=== PATIENT | female | born 1940 | race Caucasian/White ===

== ENCOUNTER → 2016-09-20 | Outpatient (CLI) | payer MEDICARE ==
[2016-09-20 09:00] LABS: Non-African American GFR(MDRD) >60 (>60 ml/min/1.73 sqM)
--- NOTE | 2016-09-20 15:02 | MR ---
Brain MRI with and without contrast HISTORY: Meningioma Multiplanar multisequence and postcontrast images following 18 cc MultiHance IV correlated to previou s brain MRI dated March There is no restricted diffusion. No hemorrhage or hydrocephalus. Corpus callosum, pituitary, cervica l medullary junction, cerebellopontine angles are within normal limits. The area of abnormal enhancem ent at the prepontine level shows mass effect on the kita as on prior exam, the appearance is stable. There are normal vascular flow voids. Normal vascular enhancement. The orbits show symmetric appeara nce. Scattered hyperintensities are present within the deep, subcortical, periventricular white matte r on inversion recovery and T2-weighted sequences. Inflammatory changes are present within the left m astoid air cells similar to prior exam. IMPRESSION: Stable exam. No significant interval change.
== END | disposition home or self-care (01) ==
LOC: RADMRIMAIN 08:35
PROVIDERS: ATTEND Neurological Surgery
DX: Z01.818 Encounter for other preprocedural examination (principal)
CPT/HCPCS: 82565; 70553; A9577

== ENCOUNTER → 2017-06-15 | Outpatient (CLI) | payer MEDICARE ==
--- NOTE | 2017-06-16 11:38 | MM ---
Reason for exam: screening (asymptomatic). Last mammogram was performed 1 year ago. History: Patient is postmenopausal and is nulliparous. Excisional biopsy of the left breast. Took estrogen for 15 years beginning at age 47. Took progesterone for 15 years beginning at age 47. Physical Findings: A clinical breast exam by your physician is recommended on an annual basis and results should be correlated with mammographic findings. MG 3D Screening Mammo W/Cad Bilateral CC and MLO view(s) were taken. Prior study comparison: June 11, 2016, bilateral MG 3d screening mammo w/cad. December 13, 2014, bilateral MG screening mammo w CAD. There are scattered fibroglandular densities. There is chronic nodularity bilaterally. There is no discrete abnormality. ASSESSMENT: Benign, BI-RAD 2 RECOMMENDATION: Routine screening mammogram of both breasts in 1 year.
== END | disposition home or self-care (01) ==
LOC: RADMAMWWP 11:03
PROVIDERS: ATTEND Family Medicine
DX: Z12.31 Encounter for screening mammogram for malignant neoplasm of breast (principal)
CPT/HCPCS: 77063; G0202

== ENCOUNTER → 2018-03-24 | Day surgery (SDC) | payer MEDICARE ==
[2018-03-22 13:19] VITALS: BMI 31.2
[~2018-03-24] MED LIST: LIDOCAINE 1% 20 ML VIAL (10MG/ML) FOR IV START INTRADERMA PRN; PROPOFOL 10 MG/ML 20 ML VIAL IV ONE
[2018-03-24 10:04] VITALS: RESP 18; TEMP 97.6
[2018-03-24] MEDS: LACTATED RINGERS 1,000 ML IV SCH ×2 (10:26→10:32)
--- NOTE | 2018-03-24 10:52 | P.PCN ---
Date of Procedure: 03/24/18 Procedure(s) Performed: BRIEF HISTORY: Patient is a 77-year-old pleasant female, scheduled for an elective colonoscopy as a part of evaluation of prior history of colon polyps. PROCEDURE PERFORMED: Colonoscopy. PREOPERATIVE DIAGNOSIS: History of colon polyps. IV sedation per Anesthesia. PROCEDURE: After informed consent was obtained, the patient, was brought into the endoscopy unit. IV sedation was administered by Anesthesia under continuous monitoring. Digital rectal examination was normal. Initially the Olympus CF- 160 flexible video colonoscope was then inserted in the rectum, gradually advanced into the cecum without any difficulty. Careful examination was performed as the scope was gradually being withdrawn. Ileocecal valve and the appendiceal orifice were visualized and appeared normal. Prep was excellent. Mucosa of the cecum, ascending colon, transverse colon, descending colon, sigmoid colon, and rectum appeared normal. Scattered sigmoid diverticulosis seen. Retroflexion was performed in the rectum and no lesions were seen. The patient tolerated the procedure well. IMPRESSION: Normal-appearing colon from rectum to cecum with no evidence of colorectal neoplasia. Scattered sigmoid diverticulosis. RECOMMENDATIONS: Findings of this examination were discussed with the patient as well as a family. She was advised to be a high-fiber diet..
[2018-03-24 11:18] VITALS: BP 136/82; PULSE 50
== END ==
LOC: ORWHC2ENDO 08:42
PROVIDERS: ATTEND Internal Medicine Gastroenterology
DX: Z12.11 Encounter for screening for malignant neoplasm of colon (principal); K57.30 Diverticulosis of large intestine without perforation or abscess without bleeding; Z86.010 Personal history of colon polyps; I10 Essential (primary) hypertension; Z79.899 Other long term (current) drug therapy; Z88.5 Allergy status to narcotic agent; Z88.2 Allergy status to sulfonamides; Z91.09 Other allergy status, other than to drugs and biological substances
CPT/HCPCS: J2704; G0105; 45378

== ENCOUNTER → 2018-06-11 | Outpatient (CLI) | payer MEDICARE ==
--- NOTE | 2018-06-11 07:52 | MR ---
EXAMINATION TYPE: MR brain wo/w con DATE OF EXAM: 06/11/2018 COMPARISON: Prior MRI brain May 29, 2017 HISTORY: Meningioma TECHNIQUE: Multiplanar, multisequence images of the brain and brainstem is performed without and with IV contras t, utilizing 8.5 mL intravenous Gadavist . FINDINGS: Diffusion weighted images demonstrate no evidence of a recent infarct or other diffusion ab normality. There is no worrisome extra-axial fluid collection. There is ventricular and sulcal promi nence consistent with diffuse cerebral atrophy. There are scattered foci of T2 hyperintensity seen th roughout the superficial, deep, and periventricular white matter. Approximately 30-40 scattered lesio ns are redemonstrated. No change from prior. Midline structures demonstrate normal morphology. The craniocervical junction appears within normal limits. Post contrast images demonstrate redemonstrate homogeneous enhancing extra-axial mass right of superior to mid kita measuring 1.7 cm transversely by 1.1 cm AP diameter by 2.0 cm craniocaudal di ameter axial image 11 and sagittal image 79 consistent with meningioma not significantly changed in s ize or appearance from most recent MRI. No new enhancing lesions are present. The dural venous sinuse s appear patent. The visualized sinuses remain clear and the globes are intact. Some patchy increased fluid signal left mastoid air cells remains present. IMPRESSION: Stable 2.0 cm prepontine enhancing mass or meningioma. No new enhancing lesions are prese nt. Background fairly moderate chronic small vessel ischemic change redemonstrated without significan t interval change.
== END | disposition home or self-care (01) ==
LOC: RADMRIMAIN 05:58
PROVIDERS: ATTEND Neurological Surgery
DX: D32.0 Benign neoplasm of cerebral meninges (principal); I67.82 Cerebral ischemia
CPT/HCPCS: 82565; 70553; 36415; A9585

== ENCOUNTER → 2019-07-13 | Outpatient (CLI) | payer MEDICARE ==
--- NOTE | 2019-07-13 12:31 | MR ---
EXAMINATION TYPE: MR brain wo/w con DATE OF EXAM: 07/13/2019 COMPARISON: 06/11/2018 HISTORY: Follow-up for meningioma. TECHNIQUE: Multiplanar, multisequence images of the brain and brainstem is performed without and with IV contras t, utilizing 9 mL intravenous Gadavist . FINDINGS: Diffusion weighted images demonstrate no evidence of a recent infarct or other diffusion ab normality. There is no extra-axial fluid collection. Scattered foci of T2/FLAIR hyperintensity are s een within the periventricular and subcortical white matter most commonly sequela of microangiopathy. Overall there is moderate burden. The ventricular system and cisternal spaces are symmetrically prom inent compatible with age-related volume loss. Again on postcontrast images there is an extra-axial T1 isointense and T2 isointense homogeneously en hancing mass measuring 1.7 x 1.1 x 2.0 cm, unchanged from 06/11/2018. There is mass effect on the pitu itary hypothalamus with thickening of the hypothalamus and questionable abnormal enhancement There is mass effect on the basilar artery shifting it to the left. This is at the level of the mid kita. Midline structures demonstrate normal morphology. The craniocervical junction appears within normal limits. The dural venous sinuses appear patent. The visualized sinuses are clear other than trace muc osal thickening in the ethmoid sinuses and the globes are intact. There is undulation of the optic ne rves. Prominent amount of subarachnoid fluid is seen surrounding the optic nerves. There is a scant a mount of fluid in the bilateral mastoid air cells, a chronic finding. Left frontal old well-circumscr ibed subcutaneous mass measures 1 cm and likely represents a sebaceous cyst. IMPRESSION: 1. Unchanged size of the prepontine extra-axial meningioma with slight mass effect on the basilar art tasha and abutment of the hypothalamus. There is some thickening and questionable abnormal enhancement of the hypothalamus. 2. Left frontal subcutaneous lesion likely represents a sebaceous cyst as seen on the prior 2018. Cor relate with physical exam. 3. Similar moderate burden nonspecific white matter change, likely on the basis of chronic microangio tapan. 4. Undulation of the optic nerves and prominent subarachnoid fluid. Ophthalmologic examination is rec ommended to exclude papilledema of increased intracranial pressure.
== END | disposition home or self-care (01) ==
LOC: RADMRIMAIN 09:55
PROVIDERS: ATTEND Neurological Surgery
DX: D32.9 Benign neoplasm of meninges, unspecified (principal)
CPT/HCPCS: 70553; A9585

== ENCOUNTER → 2019-07-22 | Outpatient (CLI) | payer MEDICARE ==
--- NOTE | 2019-07-25 10:37 | MM ---
Reason for exam: screening (asymptomatic). Last mammogram was performed 1 year and 1 month ago. History: Patient is postmenopausal and is nulliparous. Excisional biopsy of the left breast. Took estrogen for 15 years beginning at age 47. Took progesterone for 15 years beginning at age 47. Physical Findings: A clinical breast exam by your physician is recommended on an annual basis and results should be correlated with mammographic findings. MG 3D Screening Mammo W/Cad Bilateral CC, MLO, and XCCL view(s) were taken. Prior study comparison: June 29, 2018, bilateral MG 3d screening mammo w/cad. June 15, 2017, bilateral MG 3d screening mammo w/cad. The breast tissue is heterogeneously dense. This may lower the sensitivity of mammography. There is no discrete abnormality. No significant changes when compared with prior studies. ASSESSMENT: Negative, BI-RAD 1 RECOMMENDATION: Routine screening mammogram of both breasts in 1 year.
== END | disposition home or self-care (01) ==
LOC: RADMAMWWP 14:46
PROVIDERS: ATTEND Family Medicine
DX: Z12.31 Encounter for screening mammogram for malignant neoplasm of breast (principal)
CPT/HCPCS: 77063; 77067

== ENCOUNTER → 2021-04-11 | Outpatient (CLI) | payer MEDICARE ==
--- NOTE | 2021-04-12 12:43 | MM ---
Reason for exam: screening (asymptomatic). Last mammogram was performed 1 year and 9 months ago. History: Patient is postmenopausal and is nulliparous. Excisional biopsy of the left breast. Took estrogen for 15 years beginning at age 47. Took progesterone for 15 years beginning at age 47. Physical Findings: A clinical breast exam by your physician is recommended on an annual basis and results should be correlated with mammographic findings. MG 3D Screening Mammo W/Cad Bilateral CC and MLO view(s) were taken. Prior study comparison: July 22, 2019, bilateral MG 3d screening mammo w/cad. June 29, 2018, bilateral MG 3d screening mammo w/cad. The breast tissue is heterogeneously dense. This may lower the sensitivity of mammography. There is no discrete abnormality. No significant changes when compared with prior studies. ASSESSMENT: Negative, BI-RAD 1 RECOMMENDATION: Routine screening mammogram of both breasts in 1 year.
== END | disposition home or self-care (01) ==
LOC: RADMAMWWP 11:26
PROVIDERS: ATTEND Family Medicine
DX: Z12.31 Encounter for screening mammogram for malignant neoplasm of breast (principal)
CPT/HCPCS: 77063; 77067

== ENCOUNTER → 2022-04-15 | Outpatient (CLI) | payer MEDICARE ==
--- NOTE | 2022-04-21 20:01 | MM ---
Reason for Exam: Screening (asymptomatic). Last screening mammogram was performed 12 month(s) ago. Patient History: Menarche at age 11. Patient has no children. Postmenopausal. Estrogen for 15 years from age 47 until age 62. Progesterone for 15 years from age 47 until age 62. Excisional Biopsy on the Left side. Risk Values: Marilyn 5 year model risk: 2.1%. NCI Lifetime model risk: 2.7%. Prior Study Comparison: 06/29/2018 Bilateral Screening Mammogram, [facility]. 07/22/2019 Bilateral Screening Mammogram, [facility]. 04/11/2021 Bilateral Screening Mammogram, [facility]. Tissue Density: There are scattered fibroglandular densities. Findings: Analyzed By CAD. Bilateral chronic nodularity and unchanged for density. No significant change from prior exams. Overall Assessment: Benign, BI-RAD 2 Management: Screening Mammogram of both breasts in 1 year. 1. Patient should continue monthly self breast exams. 2. A clinical breast exam by your physician is recommended on an annual basis. 3. This exam should not preclude additional follow-up of suspicious palpable abnormalities. Electronically signed and approved by: Delilah Yo M.D. Radiologist
== END | disposition home or self-care (01) ==
LOC: RADMAMWWP 10:50
PROVIDERS: ATTEND Family Medicine
DX: Z12.31 Encounter for screening mammogram for malignant neoplasm of breast (principal)
CPT/HCPCS: 77063; 77067

== ENCOUNTER 2022-12-17 09:19 | Emergency (ER) | payer MEDICARE ==
[2022-12-17] MEDS ORDERED: KETOROLAC 15 MG/ML 1 ML VIAL IVP STA ×2 (10:11→12:04)
--- NOTE | 2022-12-17 10:17 | ED ---
Back Pain HPI - General Chief Complaint: Back Pain/Injury Stated Complaint: Back pain Time Seen by Provider: 12/17/22 09:38 Source: patient, EMS, RN notes reviewed Mode of arrival: ambulatory Limitations: no limitations - History of Present Illness Initial Comments: 82-year-old female presents emergency department via EMS chief with chief complaint of low back pain. Patient states that she's been more active of recent states it's been outside doing yardwork. Patient states that she does have a history of sciatica. She denies any bowel, bladder incontinence or retention or saddle anesthesias. She did receive meds from EMS she states has not helped much. - Related Data Home Medications Medication Instructions Recorded Confirmed Losartan/Hydrochlorothiazide 1 tab PO DAILY 12/17/22 12/17/22 [Losartan-Hctz 100-25 mg Tab] Multivitamins, Thera [Multivitamin 1 tab PO DAILY@1200 12/17/22 12/17/22 (formulary)] Turmeric Root Extract [Turmeric] 500 mg PO DAILY@1200 12/17/22 12/17/22 Wobenzym N 1 tab PO DAILY@1200 12/17/22 12/17/22 Previous Rx's Medication Instructions Recorded HYDROcodone/APAP 5-325MG [[place] 5] 1 each PO Q6HR PRN #12 tab 12/17/22 predniSONE 50 mg PO DAILY #5 tab 12/17/22 Allergies Allergy/AdvReac Type Severity Reaction Status Date / Time codeine Allergy Itching Verified 12/17/22 11:16 iodine Allergy Rash/Hives Verified 12/17/22 11:16 propoxyphene HCl Allergy Itching Verified 12/17/22 11:16 [From Darvon] Sulfa (Sulfonamide Allergy Rash/Hives Verified 12/17/22 11:16 Antibiotics) Review of Systems ROS Statement: Those systems with pertinent positive or pertinent negative responses have been documented in the HPI. ROS Other: All systems not noted in ROS Statement are negative. Past Medical History Past Medical History: Hypertension History of Any Multi-Drug Resistant Organisms: None Reported Past Surgical History: Orthopedic Surgery Additional Past Surgical History / Comment(s): Meningioma 1988; colonoscopy; crushed tibia repair Past Anesthesia/Blood Transfusion Reactions: No Reported Reaction Additional Past Anesthesia/Blood Transfusion Reaction / Comment(s): No previous transfusion Past Psychological History: No Psychological Hx Reported Smoking Status: Never smoker Past Alcohol Use History: Rare Past Drug Use History: None Reported - Past Family History Mother Family Medical History: Cancer Additional Family Medical History / Comment(s): bowel and cervical cancer Brother(s) Family Medical History: Cancer General Exam Limitations: no limitations General appearance: alert, in no apparent distress Head exam: Present: atraumatic, normocephalic, normal inspection Eye exam: Present: normal appearance, PERRL, EOMI. Absent: scleral icterus, conjunctival injection, periorbital swelling ENT exam: Present: normal exam, normal oropharynx, mucous membranes moist Neck exam: Present: normal inspection, full ROM. Absent: tenderness, meningismus, lymphadenopathy Respiratory exam: Present: normal lung sounds bilaterally. Absent: respiratory distress, wheezes, rales, rhonchi, stridor Cardiovascular Exam: Present: regular rate, normal rhythm, normal heart sounds. Absent: systolic murmur, diastolic murmur, rubs, gallop, clicks GI/Abdominal exam: Present: soft, normal bowel sounds. Absent: distended, tenderness, guarding, rebound, rigid Extremities exam: Present: other (Tenderness to left hip region, lateral portion, 18 with straight leg raise) Back exam: Present: tenderness, paraspinal tenderness. Absent: full ROM, hailey tebral tenderness Neurological exam: Present: alert, oriented X3, reflexes normal. Absent: motor sensory deficit Skin exam: Present: warm, dry, intact, normal color. Absent: rash Course Vital Signs 12/17/22 12/17/22 12/17/22 09:22 11:26 12:00 Temperature 97.8 F 97.1 F L 98 F Pulse Rate 62 59 L 61 Respiratory 18 16 16 Rate Blood Pressure 148/80 165/68 150/79 O2 Sat by Pulse 94 L 99 99 Oximetry 12/17/22 13:31 Temperature 97.8 F Pulse Rate 63 Respiratory 16 Rate Blood Pressure 147/81 O2 Sat by Pulse 98 Oximetry Medical Decision Making - Medical Decision Making Was pt. sent in by a medical professional or institution (, PA, PHARMACY TECHNICIAN PER DIEM, urgent care, hospital, or penitentiary...) When possible be specific @ -No Did you speak to anyone other than the patient for history (EMS, parent, family, police, friend...)? What history was obtained from this source @ -[EMS who brought the patient with current complaint and medication given Did you review nursing and triage notes (agree or disagree)? Why? @ -I reviewed and agree with nursing and triage notes Were old charts reviewed (outside hosp., previous admission, EMS record, old EKG, old radiological studies, urgent care reports/EKG's, penitentiary records)? Report findings @ -No old charts were reviewed Differential Diagnosis (chest pain, altered mental status, abdominal pain women, abdominal pain men, vaginal bleeding, weakness, fever, dyspnea, syncope, headache, dizziness, GI bleed, back pain, seizure, CVA, palpatations, mental health, musculoskeletal)? @ -Differential Back Pain: Strain, zoster, cauda equina syndrome, epidural abscess, vertebral osteomyelitis , discitis, fracture, subluxation, disc herniation, DJD, spinal stenosis, dissection, AAA, pancreatitis, peptic ulcer disease, pyelonephritis, kidney stone, this is not meant to be an all-inclusive list.e EKG interpreted by me (3pts min.). @ -None X-rays interpreted by me (1pt min.). @ -X-ray lumbar spine and left hip with pelvis shows evidence of degenerative changes, osteoarthritis, no acute fracture CT interpreted by me (1pt min.). @ -None done U/S interpreted by me (1pt. min.). @ -None done What testing was considered but not performed or refused? (CT, X-rays, U/S, labs)? Why? @ -None What meds were considered but not given or refused? Why? @ -None Did you discuss the management of the patient with other professionals (professionals i.e. , PA, PHARMACY TECHNICIAN PER DIEM, lab, RT, psych nurse, social service agency director, turnstile attendant, teacher, chief media officer, manager case)? Give summary @ -No Was smoking cessation discussed for >3mins.? @ -No Was critical care preformed (if so, how long)? @ -No Were there social determinants of health that impacted care today? How? (Homelessness, low income, unemployed, alcoholism, drug addiction, transportation, low edu. Level, literacy, decrease access to med. care, half-way, rehab)? @ -No Was there de-escalation of care discussed even if they declined (Discuss DNR or withdrawal of care, Hospice)? DNR status @ -No What co-morbidities impacted this encounter? (DM, HTN, Smoking, COPD, CAD, Cancer, CVA, ARF, Chemo, Hep., AIDS, mental health diagnosis, sleep apnea, morbid obesity)? @ -None Was patient admitted / discharged? Hospital course, mention meds given and route, prescriptions, significant lab abnormalities, going to OR and other pertinent info. @ -Discharge patient has symptoms is still with lumbar to Headache, left hip bursitis she's been doing extra work outside she is neurologically intact with no red flag symptoms. Patient is discharged in stable condition return parame maxines were discussed Undiagnosed new problem with uncertain prognosis? @ -No Drug Therapy requiring intensive monitoring for toxicity (Heparin, Nitro, Insulin, Cardizem)? @ -No Were any procedures done? @ -No Diagnosis/symptom? @ -Lumbar back pain, hip bursitis Acute, or Chronic, or Acute on Chronic? @ -Acute Uncomplicated (without systemic symptoms) or Complicated (systemic symptoms)? @ -Uncomplicated Side effects of treatment? @ -No Exacerbation, Progression, or Severe Exacerbation? @ -No Poses a threat to life or bodily function? How? (Chest pain, USA, VT, pneumonia, PE, COPD, DKA, ARF, appy, cholecystitis, CVA, Diverticulitis, Homicidal, Suicidal, threat to staff... and all critical care pts) @ -No Disposition Clinical Impression: Hip bursitis, left, Lumbar radiculopathy, acute Disposition: HOME SELF-CARE Condition: Stable Instructions (If sedation given, give patient instructions): Acute Low Back Pain (ED) Additional Instructions: Please return to the Emergency Department if symptoms worsen or any other concerns. Prescriptions: HYDROcodone/APAP 5-325MG [[place] 5] 1 each PO Q6HR PRN #12 tab PRN Reason: Pain predniSONE 50 mg PO DAILY #5 tab Is patient prescribed a controlled substance at d/c from ED?: Yes When asked, does pt state using other controlled substances?: No If prescribed controlled substance>3 days was MAPS reviewed?: Prescribed <3 Days If opioid is for acute pain is fill amount 7 days or less?: Yes If Rx opioid, was Start Talking consent form obtained?: Yes Referrals: None,Stated [REFERRING] - 1-2 days Dottie Francisco DO [Doctor of Osteopathic Medicine] - 1-2 days Time of Disposition: 13:10
--- NOTE | 2022-12-17 11:05 | XR ---
EXAMINATION TYPE: XR Hip LT and AP Pelvis, XR lumbar spine 2 or 3V DATE OF EXAM: 12/17/2022 10:40 AM INDICATION: Patient age:Female; 82 years old; Reason for study: pain; COMPARISON: None. TECHNIQUE: The left hip was examined in the frontal and lateral projections and a AP pelvis. Lumbar spine was evaluated in frontal, coned in L5-S1 and lateral views. FINDINGS: No evidence for acute process, joint dislocation or significant soft tissue swelling. Osteo phyte formation of the superior acetabulum of the hips. Osteophyte formation of the vertebral bodies with scattered disc space narrowing. Neural foraminal stenosis most proximal L5-S1 secondary to facet joint arthropathy. Scattered secretions in the pelvis. IMPRESSION: 1. No evidence for acute process. 2. Mild hip osteoarthrosis. 3. Mild multilevel disc degeneration changes throughout the spine.
[2022-12-17 11:32] VITALS: RESP 16
[2022-12-17] MEDS ORDERED: methylPREDNISolone SOD SUCCI 125 MG/2 ML VIAL IV STA (12:04)
[2022-12-17] MEDS ORDERED: HYDROmorphone 0.5 MG/0.5 ML SYRINGE IVP STA (12:04)
[2022-12-17 13:32] VITALS: BP 147/81; PULSE 63; TEMP 97.8
== END 2022-12-17 13:46 | disposition home or self-care (01) ==
LOC: EC 09:19
DX: M54.16 Radiculopathy, lumbar region (principal); M70.72 Other bursitis of hip, left hip; I10 Essential (primary) hypertension; Z79.899 Other long term (current) drug therapy; Z88.8 Allergy status to other drugs, medicaments and biological substances; Z88.2 Allergy status to sulfonamides
CPT/HCPCS: 72100; 73502; 99284; 96374; 96375 ×3; 96376; J2930; J3360; J1885; J1170

== ENCOUNTER → 2023-01-22 | Outpatient (CLI) | payer MEDICARE ==
--- NOTE | 2023-01-23 13:17 | MR ---
EXAMINATION TYPE: MR lumbar spine wo con DATE OF EXAM: 01/22/2023 3:42 PM COMPARISON: 12/17/2022. CLINICAL INDICATION: Female, 82 years old with history of M51.36; low back pain into left leg, weakne ss TECHNIQUE: Multi planar, multi sequence imaging was performed utilizing: T1-weighted, T2-weighted, a nd turbo inversion recovery imaging of the lumbar spine. IV Contrast: None. FINDINGS: Alignment: The lumbar vertebral bodies have preserved heights and alignment. Cord: The conus medullaris and the distal spinal cord appear unremarkable with regards to their signa l intensity and morphology. Bones/Discs: Scattered Modic endplate changes seen throughout the spine. Degeneration with osteophyte formation, disc space narrowing and Schmorl's nodes are present. Mild reactive inversion recovery ed preeti adjoining endplates of L1-L2 and L2-L3. Findings the thoracic degree at L5-S1. T12-L1: No evidence of significant spinal canal stenosis or neural foraminal stenosis. L1-L2: Osteophyte formation and disc space narrowing without evidence of significant spinal canal chung nosis or neural foraminal stenosis. L2-L3: Disc bulge and facet joint arthropathy result in mild spinal canal and mild bilateral neural f oraminal stenosis. L3-L4: Disc bulge and facet joint arthropathy result in mild spinal canal and moderate to severe left and moderate right neural foraminal stenosis. L4-L5: Disc bulge and facet joint arthropathy result in mild spinal canal and moderate bilateral neur al foraminal stenosis. L5-S1: The disc is rounded posterior morphology without significant spinal canal stenosis. Facet join t arthropathy with mild neural foraminal stenosis. No significant spinal canal or neural foraminal stenosis in the remainder of the visualized levels. Other findings: None. IMPRESSION: 1. No definitive evidence of disc herniation or significant spinal canal stenosis. 2. Moderate to severe disc degeneration with associated osteoarthritic changes. Neural foraminal chung nosis worse at left L3-L4 with moderate to severe stenosis.
== END | disposition home or self-care (01) ==
LOC: RADMRIMAIN 14:49
PROVIDERS: ATTEND Orthopaedic Surgery Orthopaedic Surgery of the Spine
DX: M51.36 Other intervertebral disc degeneration, lumbar region (principal); M47.816 Spondylosis without myelopathy or radiculopathy, lumbar region; M99.73 Connective tissue and disc stenosis of intervertebral foramina of lumbar region
CPT/HCPCS: 72148

== ENCOUNTER → 2023-09-02 | Outpatient (CLI) | payer MEDICARE ==
--- NOTE | 2023-09-03 20:58 | MM ---
Reason for Exam: Screening (asymptomatic). Last mammogram was performed 1 year(s) and 4 month(s) ago. Patient History: Menarche at age 11. Patient has no children. Postmenopausal. Estrogen for 15 years from age 47 until age 62. Progesterone for 15 years from age 47 until age 62. Excisional Biopsy on the Left side. Risk Values: Marilyn 5 year model risk: 2.0%. NCI Lifetime model risk: 2.4%. Prior Study Comparison: 07/22/2019 Bilateral Screening Mammogram, [facility]. 04/11/2021 Bilateral Screening Mammogram, [facility]. 04/15/2022 Bilateral MG 3D screening mammo w/cad, [facility]. Tissue Density: There are scattered fibroglandular densities. Findings: Analyzed By CAD. Unchanged bilateral areas of asymmetric density. There is no suspicious group of microcalcifications or new suspicious mass in either breast. Overall Assessment: Benign, BI-RAD 2 Management: Screening Mammogram of both breasts in 1 year. . Patient should continue monthly self-breast exams. A clinical breast exam by your physician is recommended on an annual basis. This exam should not preclude additional follow-up of suspicious palpable abnormalities. Note on Marilyn scores and lifetime risk: 1. A Marilyn score greater than 3% is considered moderate risk. If this is the case, consider specialist referral to assess eligibility for a risk reducing agent. 2. If overall lifetime risk for the development of breast cancer is 20% or higher, the patient may qualify for future screening with alternating mammogram and breast MRI. Electronically signed and approved by: Delilah Yo M.D. Radiologist
== END | disposition home or self-care (01) ==
LOC: RADMAMWWP 10:33
PROVIDERS: ATTEND Family Medicine
DX: Z12.31 Encounter for screening mammogram for malignant neoplasm of breast (principal); Z78.0 Asymptomatic menopausal state
CPT/HCPCS: 77063; 77067